=== PATIENT | female | born 1975 | race African-American/Black ===

== ENCOUNTER 2025-01-29 11:54 | Emergency (ER) | payer OTHER, SELFPAY ==
[2025-01-29 12:01] VITALS: BP 138/74; PULSE 99; RESP 18; TEMP 36.6; O2SAT 99
--- NOTE | 2025-01-29 13:29 | ED.GENADULT ---
HPI - General Adult General Chief complaint: Skin/Abscess/Foreign Body Stated complaint: boil on back Time Seen by Provider: 01/29/25 13:01 History of Present Illness HPI narrative: Patient is a 50-year-old female who presents ER with infection to her back. She has a cyst that is been there for a long time and her was trying to pop it. He did get some pus out. She has since developed redness and swelling along the left side of her body. There continues to be some drainage from the area. No fevers or chills or sweats. She is not on any antibiotics. Related Data Allergies Allergy/AdvReac Type Severity Reaction Status Date / Time No Known Allergies Allergy Verified 01/29/25 13:27 Review of Systems Review of Systems: All systems reviewed & are unremarkable except as noted in HPI and below Constitutional: Constitutional: Reports no additional constitutional complaints Musculoskeletal: Musculoskeletal: Reports no additional musculoskeletal complaints Integumentary/Breasts: Skin/Breast: Reports system reviewed and no additional complaints, except as docu PMFSH Past Medical History Medical History (Updated 01/29/25 @ 13:47 by Judd Suazo MD) Healthy female adult Surgical History Surgical History (Updated 01/29/25 @ 13:30 by Judd Suazo MD) No pertinent past surgical history Exam Narrative: GENERAL: Well-appearing, well-nourished, and in no acute distress. HEAD: Normocephalic, atraumatic. ENT: Mucous membranes moist. EXTREMITIES: Normal range of motion. No edema. SKIN: Warm, dry. Abscess middle aspect of the lumbar spine your L2 with erythema induration extending out laterally. It almost looks dermatomal but there are no vesicles and there is definitely a cystic pocket. NEURO: No focal deficits. Alert and oriented x3. PSYCH: Normal mood and affect. Course Course Emergency Course: Informed of results and treatment plan. Discharge. Vital Signs Vital signs: Vital Signs Temperature 97.9 F 01/29/25 12:01 Pulse Rate 99 01/29/25 12:01 Respiratory Rate 18 01/29/25 12:01 Blood Pressure 138/74 01/29/25 12:01 Pulse Oximetry 99 01/29/25 12:01 Oxygen Delivery Room Air 01/29/25 12:01 Temperature 97.9 F 01/29/25 12:01 Pulse Rate 99 01/29/25 12:01 Respiratory Rate 18 01/29/25 12:01 Blood Pressure 138/74 01/29/25 12:01 Pulse Oximetry 99 01/29/25 12:01 Oxygen Delivery Room Air 01/29/25 12:01 Procedures Abscess I/D back: Date of Incision: 01/29/25 Time of Incision: 13:45 Local Anesthetic: lidocaine 1% and with epi Amount of anesthesia used (mL): 4 Technique: incised with #11 blade Packing used?: none I&D Results: Pus Medical Decision Making Vital Signs Vital Signs: Vital Signs Temperature 97.9 F 01/29/25 12:01 Pulse Rate 99 01/29/25 12:01 Respiratory Rate 18 01/29/25 12:01 Blood Pressure 138/74 01/29/25 12:01 Pulse Oximetry 99 01/29/25 12:01 Oxygen Delivery Room Air 01/29/25 12:01 Temperature 97.9 F 01/29/25 12:01 Pulse Rate 99 01/29/25 12:01 Respiratory Rate 18 01/29/25 12:01 Blood Pressure 138/74 01/29/25 12:01 Pulse Oximetry 99 01/29/25 12:01 Oxygen Delivery Room Air 01/29/25 12:01 Discharge Plan Discharge Clinical Impression: Abscess or cellulitis of back Patient Disposition: Home, Self-Care Condition: Stable Instructions: Abscess (ED) Additional Instructions: Return ER if you have fever over 100.4? F, you cannot keep down food water, you lose consciousness, or have additional concerns. Patient Language: Egyptian Prescriptions: New sulfamethoxazole-trimethoprim [Bactrim DS] 800-160 mg tablet 1 tablet PO Q12H Qty: 20 0RF Follow-up/Referrals: Flash Ashley MD [Physician] - 1 Week PHYSICIAN,SPORTS THERAPIST [Primary Care Provider] -
[2025-01-29] MEDS: LIDO 1%/EPINEPHRINE 1:100,000 20 ML VIAL 10 ML INFILTRATE (13:38)
--- NOTE | 2025-01-29 14:03 | PC.NURSE ---
MD Goode called to bedside for patient persistent afib RVR in the 130's and hypotension with systematic dizziness. BP 82/68
== END 2025-01-29 14:10 | disposition home or self-care (01) ==
LOC: ANHED 14:04
PROVIDERS: Emergency Provider Emergency Medicine
DX: L02.212 Cutaneous abscess of back [any part, except buttock and flank] (principal)
CPT/HCPCS: 10060; 99282; J2004